=== PATIENT | male | born 1965 | race African-American/Black ===

== ENCOUNTER 2017-03-05 11:36 | Day surgery (SDC) | payer OTHER ==
--- NOTE | ~2017-03-05 | EGD ---
EGD REPORT [facility] [address] [place] [address] NAME: DAVID GASTELUM : [birth year] STATUS : REG [facility] [place] PAT#: [id number] AGE: 51 ADM/REG DATE : 03/05/17 MR#: [id number] REPORT SERV DATE: 03/05/17 DICTATED BY: QUINTON LOWRY DATE: 03/05/17 REPORT STATUS : Draft [facility]ANS[facility] BY: [facility] DATE: 03/05/17 [facility] Center Patient Name: David Gastelum Date of : 1965 Attending MD: RODRI LOWRY MD Procedure Date No Time: 03/05/2017 Procedure: Colonoscopy Indications: Screening for colorectal malignant neoplasm Referring MD: RUFUS BOLANOS Medicines: See the Anesthesia note for documentation of the administered medications Complications: No immediate complications. Estimated blood loss: None. Procedure: Pre-Anesthesia Assessment: - ASA Grade Assessment: III - A patient with severe systemic disease. - Prior to the procedure, a History and Physical was performed, and patient medications and allergies were reviewed. The patient's tolerance of previous anesthesia was also reviewed. The risks and benefits of the procedure and the sedation options and risks were discussed with the patient. All questions were answered, and informed consent was obtained. Prior Anticoagulants: The patient has taken no previous anticoagulant or antiplatelet agents. After reviewing the risks and benefits, the patient was deemed in satisfactory condition to undergo the procedure. After I obtained informed consent, the scope was passed under direct vision. Throughout the procedure, the patient's blood pressure, pulse, and oxygen saturations were monitored continuously. The PCF [id number] was introduced through the anus and advanced to the cecum, identified by appendiceal orifice and ileocecal valve. The ileocecal valve, appendiceal orifice and rectum were photographed. The entire colon was examined. The colonoscopy was performed without difficulty. The patient tolerated the procedure well. The quality of the bowel preparation was adequate. Findings: The perianal and digital rectal examinations were normal. Many medium-mouthed diverticula were found in the descending colon and at the splenic flexure. Non-bleeding internal hemorrhoids were found during retroflexion and were Grade I (internal hemorrhoids that do not prolapse). No other significant abnormalities were identified in a careful EGD REPORT [address] [address] NAME: DAVID GASTELUM : [birth year] STATUS : REG [facility]#: [id number] AGE: 51 ADM/REG DATE : 03/05/17 MR#: [id number] REPORT SERV DATE: 03/05/17 DICTATED BY: QUINTON LOWRY DATE: 03/05/17 REPORT STATUS : Draft [facility]: [facility] DATE: 03/05/17 examination of the remainder of the colon. Impression: - Diverticulosis in the descending colon and at the splenic flexure. - Non-bleeding internal hemorrhoids. Recommendation: - Patient has a contact number available for emergencies. The signs and symptoms of potential delayed complications were discussed with the patient. Return to normal activities tomorrow. Written discharge instructions were provided to the patient. - High fiber diet indefinitely. - Discharge patient to home. - Continue present medications. - Repeat colonoscopy in 10 years for surveillance. Procedure Code(s): --- Professional --- 47139, Colonoscopy, flexible, proximal to splenic flexure; diagnostic, with or without collection of specimen(s) by brushing or washing, with or without colon decompression (separate procedure) Diagnosis Code(s): --- Professional --- K64.0, First degree hemorrhoids K57.30, Diverticulosis of large intestine without perforation or abscess without bleeding Z12.11, Encounter for screening for malignant neoplasm of colon CPT copyright 2013 [employer]. All rights reserved. The codes documented in this report are preliminary and upon macaroni press operator review may be revised to meet current compliance requirements. RODRI LOWRY MD 03/05/2017 2:49 PM This report has been signed electronically. Number of Addenda: 0 Note Initiated On: 03/05/2017 2:19 PM Scope Withdrawal Time 0 hours 10 minutes 54 seconds [address] [id number]
[~2017-03-05 11:36] MED LIST: CAT1 PO; NORV5 PO; PRINZIDE1 TA1 PO; TOPXL50 PO; ZOCOR20 PO
== END 2017-03-05 23:59 | disposition home or self-care (01) ==
LOC: DMU 11:36
PROVIDERS: Internal Medicine Gastroenterology
PROC: 0DJD8ZZ Inspection of Lower Intestinal Tract, Via Natural or Artificial Opening Endoscopic (ICD-10-PCS; principal; 2017-03-05 13:00)
DX: Z12.11 Encounter for screening for malignant neoplasm of colon (principal); K64.0 First degree hemorrhoids; K57.30 Diverticulosis of large intestine without perforation or abscess without bleeding; I10 Essential (primary) hypertension; E66.9 Obesity, unspecified; E78.00 Pure hypercholesterolemia, unspecified; Z79.899 Other long term (current) drug therapy; Z98.890 Other specified postprocedural states